=== PATIENT | male | born 1995 | race Caucasian/White ===

== ENCOUNTER 2019-01-01 18:52 | Emergency (ER) | payer BC ==
[2019-01-01] MEDS ORDERED: HYDROmorphone 2 MG/ML Syringe IVPUSH ONE (19:04)
[2019-01-01] MEDS ORDERED: Sodium Chloride 0.9% 1,000 ML IV SCH (19:05)
[2019-01-01] MEDS ORDERED: Acetaminophen/HYDROcodone 325-5 MG Tab ONE (19:55)
[2019-01-01] MEDS ORDERED: Lidocaine 2% 5 ML SDV ONE (19:55)
[2019-01-01] MEDS ORDERED: Amoxicillin/Clavulanate K 875-125 MG Tab ONE (19:55)
[2019-01-01] MEDS ORDERED: Diphtheria,Pertussis(Acell),Tetanus Vaccine 0.5 ML SDV inactive IM ONE (19:55)
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
== END 2019-01-01 20:16 | disposition home or self-care (01) ==
LOC: LB.ED 18:52
DX: S81.812A Laceration without foreign body, left lower leg, initial encounter (principal); V86.99XA Unspecified occupant of other special all-terrain or other off-road motor vehicle injured in nontraffic accident, initial encounter; Z23 Encounter for immunization
CPT/HCPCS: 12002; 73590; 90471; 90715; 99283; A9270; J1170; J2001; J7030

== ENCOUNTER 2020-05-16 09:18 | Emergency (ER) | payer BC ==
--- NOTE | 2020-05-17 07:12 | ER ---
HISTORY OF PRESENT ILLNESS: A 25-year-old male here with complaints of right ear pain and loss of hearing. He states this has been ongoing for a few days. He has been using over- the-counter medications but it does not seem to help. He does have fairly chronic sinus congestion and is concerned about a sinus infection as well. He has not been running a fever. No problems with shortness of breath, wheezing, or GI symptoms. OBJECTIVE: GENERAL APPEARANCE: The patient is awake and alert, in no obvious distress. VITAL SIGNS: Reviewed as listed. HEENT: The patient's ears are occluded with cerumen completely on the right side and mostly on the left side. There is no tragal or auricular tenderness. Oral mucous membranes moist. Posterior pharynx shows drainage and minimal cobblestoning. There is no maxillary or frontal sinus tenderness today with palpation. NECK: Supple. LUNGS: Clear. SKIN: Warm and dry. INITIAL TREATMENT PLAN: Nursing staff irrigated the patient's ears removing a large amount of wax bilaterally. I re-evaluated the patient and the right ear reveals the TM is bulging and erythematous. The wax is gone. The left ear exam at this point is normal. DIAGNOSES: 1. Acute otitis media, right ear. 2. Cerumen impaction bilateral. TREATMENT PLAN: Omnicef will be started for 10 days. The patient is to use over-the- counter medications for pain control and follow up is p.r.n. CRS/MODL /[id number]
== END 2020-05-16 09:59 | disposition home or self-care (01) ==
LOC: LB.ED 09:18
DX: H66.91 Otitis media, unspecified, right ear (principal); H61.23 Impacted cerumen, bilateral
CPT/HCPCS: 69209; 99283; 99283-25

== ENCOUNTER 2025-05-01 11:45 | Emergency (ER) | payer BC | END 2025-05-01 12:34 | disposition home or self-care (01) | LOC: LB.ED 11:45 | DX: M76.812 Anterior tibial syndrome, left leg (principal); J45.909 Unspecified asthma, uncomplicated; Z88.6 Allergy status to analgesic agent; Z88.8 Allergy status to other drugs, medicaments and biological substances; Z79.899 Other long term (current) drug therapy | CPT/HCPCS: 99282; 99283 ==

== ENCOUNTER 2025-05-02 15:04 | Emergency (ER) | payer BC | END 2025-05-02 15:52 | disposition home or self-care (01) | LOC: LB.ED 15:04 | DX: L03.116 Cellulitis of left lower limb (principal); J45.909 Unspecified asthma, uncomplicated; Z88.6 Allergy status to analgesic agent; Z88.8 Allergy status to other drugs, medicaments and biological substances; Z79.899 Other long term (current) drug therapy | CPT/HCPCS: 96372; 99283; J0696 ==